=== PATIENT | male | born 1945 | race Caucasian/White ===

== ENCOUNTER 2017-07-17 15:27 | Inpatient (IN) | payer MEDICARE, OTHER ==
[~2017-07-17] VITALS: Ht 160 cm; Wt 105.4 kg
[2017-07-17 16:41] LABS: BASOPHILS ABSOLUTE AUTO 0.06 K/mm3 (0.00-0.23); BASOPHILS PERCENT AUTO 1 % (0-2); EOSINOPHILS ABSOLUTE AUTO 0.18 K/mm3 (0.00-0.68); EOSINOPHILS PERCENT AUTO 3 % (0-6); Hematocrit 35.7 % (37.0-53.0); Hemoglobin 11.7 g/dL (13.5-17.5); IMMATURE GRAN ABSOLUTE AUTO 0.02 K/mm3 (0.00-0.10); IMMATURE GRAN PERCENT AUTO 0 % (0-1); LYMPHOCYTES ABSOLUTE AUTO 0.78 K/mm3 (0.84-5.20); LYMPHOCYTES PERCENT AUTO 11 % (21-46); MONOCYTES ABSOLUTE AUTO 0.95 K/mm3 (0.16-1.47); MONOCYTES PERCENT AUTO 13 % (4-13); Mean Corpuscular HGB 31.5 pg (26.0-34.0); Mean Corpuscular HGB Conc 32.8 g/dL (31.5-36.5); Mean Corpuscular Volume 96 fL (80-100); Mean Platelet Volume 8.7 fL (9.1-12.4); NEUTROPHILS ABSOLUTE AUTO 5.24 K/mm3 (1.96-9.15); NEUTROPHILS PERCENT AUTO 73 % (41-73); Platelet Count 191 K/mm3 (150-400); RDW Coefficient Variation 13.2 % (11.7-14.2); RDW Standard Deviation 47.5 fL (35.1-46.3); Red Blood Cell Count 3.71 M/mm3 (4.30-5.90); White Blood Cell Count 7.23 K/mm3 (4.00-11.30)
[2017-07-17] MEDS ORDERED: FURO20 PO (16:43)
[2017-07-17] MEDS ORDERED: ELIQUIS5 MG PO (16:43)
[2017-07-17 16:58] LABS: Alanine Aminotransfer (ALT/SGP 9 U/L (12-78); Albumin, Blood 3.1 g/dL (3.4-5.0); Albumin/Globulin Ratio 0.9 (0.8-1.8); Alk Phos 84 U/L (50-136); Anion Gap 9 mmol/L (6-16); Aspartate Aminotrans (AST/SGOT 16 U/L (12-37); Bilirubin, Total 1.4 mg/dL (0.1-1.0); Blood Urea Nitrogen 10 mg/dL (8-24); Bun/Creatinine Ratio 10.1 (12.0-20.0); CO2, Blood 26 mmol/L (21-32); Calcium, Blood 8.8 mg/dL (8.5-10.1); Chloride, Blood 102 mmol/L (98-108); Creatinine, Blood 0.99 mg/dL (0.60-1.20); Globulin, Blood 3.6 g/dL (2.2-4.0); Glomerular Filtration Rate >60 (60-); Glucose, Blood 115 mg/dL (70-99); Potassium, Blood 3.4 mmol/L (3.5-5.5); Sodium, Blood 137 mmol/L (136-145); Total Protein, Blood 6.7 g/dL (6.4-8.2); Troponin I 0.068 ng/mL (0.000-0.040)
[2017-07-17 19:01] LABS: International Normalized Ratio 1.2; Prothrombin Time Results 12.6 Sec (9.7-11.5)
[2017-07-17 20:21] LABS: Source, Urine Clean Catch
[2017-07-17 20:31] LABS: Appearance, Urine Clear (Clear); Bilirubin, Urine Neg (Neg); Blood, Urine 2+ (Neg); Color, Urine Yellow (P-Yellow); Glucose Qualitative, Urine Neg (Neg); Ketones, Urine Neg (Neg); Leukocyte Esterase, Urine 1+ (Neg); Nitrite, Urine Neg (Neg); Protein, Urine 2+ (Neg); Specific Gravity, Urine 1.015 (1.003-1.022); Urobilinogen, Urine 3+ (Normal); pH, Urine 6.5 (5.0-8.0)
[2017-07-17 20:39] LABS: Squamous Epithelial Cells Mod /hpf (Few)
[2017-07-17 20:40] LABS: Bacteria Not Seen /hpf
[2017-07-17] MEDS ORDERED: ATOR10 PO (21:58)
[2017-07-17] MEDS ORDERED: DILT180 (21:59)
[2017-07-18 03:50] LABS: BASOPHILS ABSOLUTE AUTO 0.04 K/mm3 (0.00-0.23); BASOPHILS PERCENT AUTO 1 % (0-2); EOSINOPHILS ABSOLUTE AUTO 0.14 K/mm3 (0.00-0.68); EOSINOPHILS PERCENT AUTO 2 % (0-6); Hematocrit 33.8 % (37.0-53.0); Hemoglobin 10.8 g/dL (13.5-17.5); IMMATURE GRAN ABSOLUTE AUTO 0.03 K/mm3 (0.00-0.10); IMMATURE GRAN PERCENT AUTO 0 % (0-1); LYMPHOCYTES ABSOLUTE AUTO 0.58 K/mm3 (0.84-5.20); LYMPHOCYTES PERCENT AUTO 8 % (21-46); MONOCYTES ABSOLUTE AUTO 0.65 K/mm3 (0.16-1.47); MONOCYTES PERCENT AUTO 9 % (4-13); Mean Corpuscular HGB 31.4 pg (26.0-34.0); Mean Corpuscular Volume 98 fL (80-100); Mean Platelet Volume 8.8 fL (9.1-12.4); NEUTROPHILS ABSOLUTE AUTO 5.47 K/mm3 (1.96-9.15); NEUTROPHILS PERCENT AUTO 79 % (41-73); Platelet Count 160 K/mm3 (150-400); RDW Coefficient Variation 13.4 % (11.7-14.2); RDW Standard Deviation 47.6 fL (35.1-46.3); Red Blood Cell Count 3.44 M/mm3 (4.30-5.90); White Blood Cell Count 6.91 K/mm3 (4.00-11.30)
[2017-07-18 04:13] LABS: Anion Gap 9 mmol/L (6-16); Blood Urea Nitrogen 13 mg/dL (8-24); Bun/Creatinine Ratio 13.8 (12.0-20.0); CO2, Blood 24 mmol/L (21-32); Chloride, Blood 106 mmol/L (98-108); Creatinine, Blood 0.94 mg/dL (0.60-1.20); Glomerular Filtration Rate >60 (60-); Glucose, Blood 124 mg/dL (70-99); Potassium, Blood 3.2 mmol/L (3.5-5.5); Sodium, Blood 139 mmol/L (136-145)
[2017-07-19 05:06] LABS: BASOPHILS ABSOLUTE AUTO 0.05 K/mm3 (0.00-0.23); BASOPHILS PERCENT AUTO 1 % (0-2); EOSINOPHILS ABSOLUTE AUTO 0.35 K/mm3 (0.00-0.68); EOSINOPHILS PERCENT AUTO 5 % (0-6); Hemoglobin 11.1 g/dL (13.5-17.5); IMMATURE GRAN ABSOLUTE AUTO 0.03 K/mm3 (0.00-0.10); IMMATURE GRAN PERCENT AUTO 0 % (0-1); LYMPHOCYTES PERCENT AUTO 10 % (21-46); MONOCYTES ABSOLUTE AUTO 0.73 K/mm3 (0.16-1.47); MONOCYTES PERCENT AUTO 10 % (4-13); Mean Corpuscular HGB Conc 32.6 g/dL (31.5-36.5); Mean Corpuscular Volume 98 fL (80-100); Mean Platelet Volume 8.9 fL (9.1-12.4); NEUTROPHILS ABSOLUTE AUTO 5.39 K/mm3 (1.96-9.15); NEUTROPHILS PERCENT AUTO 74 % (41-73); Platelet Count 173 K/mm3 (150-400); RDW Coefficient Variation 13.6 % (11.7-14.2); RDW Standard Deviation 48.6 fL (35.1-46.3); Red Blood Cell Count 3.47 M/mm3 (4.30-5.90); White Blood Cell Count 7.25 K/mm3 (4.00-11.30)
[2017-07-19 05:38] LABS: Anion Gap 7 mmol/L (6-16); Blood Urea Nitrogen 14 mg/dL (8-24); Bun/Creatinine Ratio 14.9 (12.0-20.0); CO2, Blood 26 mmol/L (21-32); Calcium, Blood 8.3 mg/dL (8.5-10.1); Chloride, Blood 107 mmol/L (98-108); Creatinine, Blood 0.94 mg/dL (0.60-1.20); Glomerular Filtration Rate >60 (60-); Glucose, Blood 107 mg/dL (70-99); Magnesium, Blood 2.2 mg/dL (1.6-2.4); Potassium, Blood 4.1 mmol/L (3.5-5.5); Sodium, Blood 140 mmol/L (136-145)
[2017-07-19 21:23] LABS: Vancomycin, Trough 8.5 ug/mL (5.0-10.0)
[2017-07-20 05:01] LABS: BASOPHILS ABSOLUTE AUTO 0.06 K/mm3 (0.00-0.23); BASOPHILS PERCENT AUTO 1 % (0-2); EOSINOPHILS ABSOLUTE AUTO 0.24 K/mm3 (0.00-0.68); EOSINOPHILS PERCENT AUTO 3 % (0-6); Hematocrit 36.1 % (37.0-53.0); Hemoglobin 11.4 g/dL (13.5-17.5); IMMATURE GRAN ABSOLUTE AUTO 0.03 K/mm3 (0.00-0.10); IMMATURE GRAN PERCENT AUTO 0 % (0-1); LYMPHOCYTES ABSOLUTE AUTO 0.63 K/mm3 (0.84-5.20); LYMPHOCYTES PERCENT AUTO 7 % (21-46); MONOCYTES ABSOLUTE AUTO 1.03 K/mm3 (0.16-1.47); MONOCYTES PERCENT AUTO 12 % (4-13); Mean Corpuscular HGB 31.4 pg (26.0-34.0); Mean Corpuscular HGB Conc 31.6 g/dL (31.5-36.5); Mean Corpuscular Volume 99 fL (80-100); NEUTROPHILS PERCENT AUTO 77 % (41-73); Platelet Count 176 K/mm3 (150-400); RDW Coefficient Variation 13.6 % (11.7-14.2); RDW Standard Deviation 49.7 fL (35.1-46.3); Red Blood Cell Count 3.63 M/mm3 (4.30-5.90); White Blood Cell Count 8.69 K/mm3 (4.00-11.30)
[2017-07-20 05:35] LABS: Albumin, Blood 2.6 g/dL (3.4-5.0); Anion Gap 9 mmol/L (6-16); Blood Urea Nitrogen 15 mg/dL (8-24); Bun/Creatinine Ratio 15.9 (12.0-20.0); CO2, Blood 23 mmol/L (21-32); Calcium, Blood 8.4 mg/dL (8.5-10.1); Chloride, Blood 107 mmol/L (98-108); Creatinine, Blood 0.94 mg/dL (0.60-1.20); Glomerular Filtration Rate >60 (60-); Glucose, Blood 113 mg/dL (70-99); Phosphorus, Blood 2.7 mg/dL (2.5-4.9); Potassium, Blood 4.3 mmol/L (3.5-5.5); Sodium, Blood 139 mmol/L (136-145)
[2017-07-20 18:13] LABS: Albumin, Blood 2.7 g/dL (3.4-5.0); Anion Gap 9 mmol/L (6-16); Blood Urea Nitrogen 15 mg/dL (8-24); Bun/Creatinine Ratio 16.3 (12.0-20.0); CO2, Blood 27 mmol/L (21-32); Calcium, Blood 8.7 mg/dL (8.5-10.1); Chloride, Blood 103 mmol/L (98-108); Creatinine, Blood 0.92 mg/dL (0.60-1.20); Glomerular Filtration Rate >60 (60-); Glucose, Blood 97 mg/dL (70-99); Phosphorus, Blood 3.2 mg/dL (2.5-4.9); Potassium, Blood 4.3 mmol/L (3.5-5.5); Sodium, Blood 139 mmol/L (136-145)
[2017-07-21 05:26] LABS: BASOPHILS ABSOLUTE AUTO 0.05 K/mm3 (0.00-0.23); BASOPHILS PERCENT AUTO 1 % (0-2); EOSINOPHILS ABSOLUTE AUTO 0.24 K/mm3 (0.00-0.68); EOSINOPHILS PERCENT AUTO 4 % (0-6); Hematocrit 32.6 % (37.0-53.0); Hemoglobin 10.8 g/dL (13.5-17.5); IMMATURE GRAN ABSOLUTE AUTO 0.01 K/mm3 (0.00-0.10); IMMATURE GRAN PERCENT AUTO 0 % (0-1); LYMPHOCYTES ABSOLUTE AUTO 0.92 K/mm3 (0.84-5.20); LYMPHOCYTES PERCENT AUTO 16 % (21-46); MONOCYTES ABSOLUTE AUTO 0.66 K/mm3 (0.16-1.47); MONOCYTES PERCENT AUTO 12 % (4-13); Mean Corpuscular HGB 32.1 pg (26.0-34.0); Mean Corpuscular HGB Conc 33.1 g/dL (31.5-36.5); Mean Corpuscular Volume 97 fL (80-100); Mean Platelet Volume 9.2 fL (9.1-12.4); NEUTROPHILS PERCENT AUTO 67 % (41-73); Platelet Count 183 K/mm3 (150-400); RDW Coefficient Variation 13.5 % (11.7-14.2); RDW Standard Deviation 48.1 fL (35.1-46.3); Red Blood Cell Count 3.36 M/mm3 (4.30-5.90); White Blood Cell Count 5.68 K/mm3 (4.00-11.30)
[2017-07-21 06:09] LABS: Albumin, Blood 2.4 g/dL (3.4-5.0); Anion Gap 10 mmol/L (6-16); Blood Urea Nitrogen 15 mg/dL (8-24); Bun/Creatinine Ratio 15.7 (12.0-20.0); CO2, Blood 26 mmol/L (21-32); Calcium, Blood 8.3 mg/dL (8.5-10.1); Chloride, Blood 104 mmol/L (98-108); Creatinine, Blood 0.96 mg/dL (0.60-1.20); Glomerular Filtration Rate >60 (60-); Glucose, Blood 116 mg/dL (70-99); Phosphorus, Blood 3.6 mg/dL (2.5-4.9); Potassium, Blood 3.8 mmol/L (3.5-5.5); Sodium, Blood 140 mmol/L (136-145)
[2017-07-21 06:13] LABS: Thyroid Stimulating Hormone 0.962 uIU/mL (0.360-4.800)
[2017-07-22 05:41] LABS: Albumin, Blood 2.5 g/dL (3.4-5.0); Anion Gap 5 mmol/L (6-16); Blood Urea Nitrogen 13 mg/dL (8-24); Bun/Creatinine Ratio 15.4 (12.0-20.0); CO2, Blood 28 mmol/L (21-32); Calcium, Blood 8.6 mg/dL (8.5-10.1); Chloride, Blood 104 mmol/L (98-108); Creatinine, Blood 0.84 mg/dL (0.60-1.20); Glomerular Filtration Rate >60 (60-); Glucose, Blood 94 mg/dL (70-99); Phosphorus, Blood 3.7 mg/dL (2.5-4.9); Potassium, Blood 4.8 mmol/L (3.5-5.5); Sodium, Blood 137 mmol/L (136-145)
[2017-07-23 05:32] LABS: BASOPHILS ABSOLUTE AUTO 0.06 K/mm3 (0.00-0.23); BASOPHILS PERCENT AUTO 1 % (0-2); EOSINOPHILS ABSOLUTE AUTO 0.29 K/mm3 (0.00-0.68); EOSINOPHILS PERCENT AUTO 4 % (0-6); Hematocrit 34.8 % (37.0-53.0); Hemoglobin 11.4 g/dL (13.5-17.5); IMMATURE GRAN ABSOLUTE AUTO 0.02 K/mm3 (0.00-0.10); IMMATURE GRAN PERCENT AUTO 0 % (0-1); LYMPHOCYTES ABSOLUTE AUTO 1.11 K/mm3 (0.84-5.20); LYMPHOCYTES PERCENT AUTO 15 % (21-46); MONOCYTES ABSOLUTE AUTO 0.78 K/mm3 (0.16-1.47); MONOCYTES PERCENT AUTO 10 % (4-13); Mean Corpuscular HGB 32.1 pg (26.0-34.0); Mean Corpuscular HGB Conc 32.8 g/dL (31.5-36.5); Mean Corpuscular Volume 98 fL (80-100); Mean Platelet Volume 9.3 fL (9.1-12.4); NEUTROPHILS ABSOLUTE AUTO 5.21 K/mm3 (1.96-9.15); NEUTROPHILS PERCENT AUTO 70 % (41-73); Platelet Count 229 K/mm3 (150-400); RDW Coefficient Variation 13.5 % (11.7-14.2); RDW Standard Deviation 48.3 fL (35.1-46.3); Red Blood Cell Count 3.55 M/mm3 (4.30-5.90); White Blood Cell Count 7.47 K/mm3 (4.00-11.30)
[2017-07-23 06:06] LABS: Albumin, Blood 2.6 g/dL (3.4-5.0); Anion Gap 7 mmol/L (6-16); Blood Urea Nitrogen 17 mg/dL (8-24); CO2, Blood 28 mmol/L (21-32); Calcium, Blood 8.6 mg/dL (8.5-10.1); Chloride, Blood 101 mmol/L (98-108); Creatinine, Blood 0.94 mg/dL (0.60-1.20); Glomerular Filtration Rate >60 (60-); Glucose, Blood 92 mg/dL (70-99); Phosphorus, Blood 3.8 mg/dL (2.5-4.9); Potassium, Blood 4.5 mmol/L (3.5-5.5); Sodium, Blood 136 mmol/L (136-145)
[2017-07-24 05:29] LABS: BASOPHILS ABSOLUTE AUTO 0.04 K/mm3 (0.00-0.23); BASOPHILS PERCENT AUTO 1 % (0-2); EOSINOPHILS PERCENT AUTO 1 % (0-6); Hematocrit 36.7 % (37.0-53.0); Hemoglobin 12.2 g/dL (13.5-17.5); IMMATURE GRAN ABSOLUTE AUTO 0.03 K/mm3 (0.00-0.10); IMMATURE GRAN PERCENT AUTO 0 % (0-1); LYMPHOCYTES ABSOLUTE AUTO 0.98 K/mm3 (0.84-5.20); LYMPHOCYTES PERCENT AUTO 11 % (21-46); MONOCYTES ABSOLUTE AUTO 1.16 K/mm3 (0.16-1.47); MONOCYTES PERCENT AUTO 13 % (4-13); Mean Corpuscular HGB 31.9 pg (26.0-34.0); Mean Corpuscular HGB Conc 33.2 g/dL (31.5-36.5); Mean Corpuscular Volume 96 fL (80-100); Mean Platelet Volume 8.9 fL (9.1-12.4); NEUTROPHILS ABSOLUTE AUTO 6.37 K/mm3 (1.96-9.15); NEUTROPHILS PERCENT AUTO 73 % (41-73); Platelet Count 231 K/mm3 (150-400); RDW Coefficient Variation 13.6 % (11.7-14.2); RDW Standard Deviation 47.9 fL (35.1-46.3); Red Blood Cell Count 3.82 M/mm3 (4.30-5.90); White Blood Cell Count 8.68 K/mm3 (4.00-11.30)
[2017-07-24 05:59] LABS: Albumin, Blood 2.7 g/dL (3.4-5.0); Anion Gap 6 mmol/L (6-16); Blood Urea Nitrogen 14 mg/dL (8-24); Bun/Creatinine Ratio 17.1 (12.0-20.0); CO2, Blood 26 mmol/L (21-32); Calcium, Blood 8.7 mg/dL (8.5-10.1); Chloride, Blood 100 mmol/L (98-108); Creatinine, Blood 0.82 mg/dL (0.60-1.20); Glomerular Filtration Rate >60 (60-); Glucose, Blood 105 mg/dL (70-99); Phosphorus, Blood 3.2 mg/dL (2.5-4.9); Potassium, Blood 4.8 mmol/L (3.5-5.5); Sodium, Blood 132 mmol/L (136-145)
[2017-07-24] MEDS ORDERED: TORSE20 PO (14:01)
[2017-07-24] MEDS ORDERED: ALPR.25 PO (14:02)
[2017-07-24] MEDS ORDERED: Oyster Shell C500 MG PO (14:04)
[2017-07-24] MEDS ORDERED: Ceftriaxon2 GM/50 ML IV (14:04)
[2017-07-24] MEDS ORDERED: Lisinopril2.5 MG PO (14:05)
[2017-07-24] MEDS ORDERED: ALBU3IS INH (14:05)
[2017-07-24] MEDS ORDERED: Nystop60 GM TOP (14:07)
[2017-07-24] MEDS ORDERED: METO50ER PO (14:08)
[2017-07-24] MEDS ORDERED: TRAM50 PO (14:09)
[2017-07-24] MEDS ORDERED: SPIR25 PO (14:10)
== END 2017-07-24 17:33 | DRG 871 ==
LOC: ER 15:27 → ICUE 18:35 → MEDS 18:35 → EDBEDREQ 20:25 → MEDS 21:16 → ICUE 23:10 → MEDS 07-18 18:05 → ENPENDDIS 07-24 10:00 → MEDS 07-24 17:33
PROVIDERS: Family Medicine; Hospitalist; Internal Medicine; Physician Assistant
DX: A41.9 Sepsis, unspecified organism (principal); J18.9 Pneumonia, unspecified organism; J96.01 Acute respiratory failure with hypoxia; I50.21 Acute systolic (congestive) heart failure; I95.9 Hypotension, unspecified; I42.9 Cardiomyopathy, unspecified; I48.0 Paroxysmal atrial fibrillation; I11.0 Hypertensive heart disease with heart failure; L03.116 Cellulitis of left lower limb; I35.0 Nonrheumatic aortic (valve) stenosis; R65.20 Severe sepsis without septic shock; I87.2 Venous insufficiency (chronic) (peripheral); E78.5 Hyperlipidemia, unspecified; F41.9 Anxiety disorder, unspecified; F32.9 Major depressive disorder, single episode, unspecified; E87.6 Hypokalemia; I87.8 Other specified disorders of veins; Z86.73 Personal history of transient ischemic attack (TIA), and cerebral infarction without residual deficits; Z85.828 Personal history of other malignant neoplasm of skin; Z88.8 Allergy status to other drugs, medicaments and biological substances; Z91.018 Allergy to other foods; Z79.01 Long term (current) use of anticoagulants; Z79.899 Other long term (current) drug therapy
CPT/HCPCS: 36415; 71045; 71046; 73630; 80048; 80053; 80069; 80202; 81001; 83605; 83735; 83880; 84443; 84484; 85025; 85610; 85730; 87040; 87086; 93005; 93010; 93306; 93926; 93971; 94640; 94760; 96365; 96366; 97110; 97163; 97166; 97530; 97535; 99285; G8978; G8979; G8987; G8988; J0696; J2001; J3370; J3480; J7030; J7050

== ENCOUNTER 2017-08-17 15:32 | Emergency (ER) | payer MEDICARE, OTHER ==
[~2017-08-17] VITALS: Ht 160 cm; Wt 94.3 kg
[~2017-08-17 15:32] MED LIST: ALBU3IS INH; ALPR.25 PO; ATOR10 PO; Ceftriaxon2 GM/50 ML IV; DILT180; ELIQUIS5 MG PO; FURO20 PO; Lisinopril2.5 MG PO; METO50ER PO; Nystop60 GM TOP; Oyster Shell C500 MG PO; SPIR25 PO; TORSE20 PO; TRAM50 PO
[2017-08-17 17:07] LABS: BASOPHILS ABSOLUTE AUTO 0.03 K/mm3 (0.00-0.23); BASOPHILS PERCENT AUTO 0 % (0-2); EOSINOPHILS ABSOLUTE AUTO 0.15 K/mm3 (0.00-0.68); EOSINOPHILS PERCENT AUTO 2 % (0-6); Hematocrit 34.7 % (37.0-53.0); Hemoglobin 11.2 g/dL (13.5-17.5); IMMATURE GRAN ABSOLUTE AUTO 0.01 K/mm3 (0.00-0.10); IMMATURE GRAN PERCENT AUTO 0 % (0-1); LYMPHOCYTES ABSOLUTE AUTO 0.56 K/mm3 (0.84-5.20); LYMPHOCYTES PERCENT AUTO 8 % (21-46); MONOCYTES ABSOLUTE AUTO 0.78 K/mm3 (0.16-1.47); MONOCYTES PERCENT AUTO 12 % (4-13); Mean Corpuscular HGB 31.2 pg (26.0-34.0); Mean Corpuscular HGB Conc 32.3 g/dL (31.5-36.5); Mean Corpuscular Volume 97 fL (80-100); Mean Platelet Volume 8.6 fL (9.1-12.4); NEUTROPHILS PERCENT AUTO 77 % (41-73); Platelet Count 228 K/mm3 (150-400); RDW Coefficient Variation 14.2 % (11.7-14.2); RDW Standard Deviation 50.6 fL (35.1-46.3); Red Blood Cell Count 3.59 M/mm3 (4.30-5.90); White Blood Cell Count 6.73 K/mm3 (4.00-11.30)
[2017-08-17 18:28] LABS: Alanine Aminotransfer (ALT/SGP 15 U/L (12-78); Albumin, Blood 3.1 g/dL (3.4-5.0); Albumin/Globulin Ratio 0.8 (0.8-1.8); Alk Phos 72 U/L (50-136); Anion Gap 7 mmol/L (6-16); Aspartate Aminotrans (AST/SGOT 15 U/L (12-37); Bilirubin, Total 0.7 mg/dL (0.1-1.0); Blood Urea Nitrogen 14 mg/dL (8-24); Bun/Creatinine Ratio 13.7 (12.0-20.0); CO2, Blood 29 mmol/L (21-32); Calcium, Blood 8.6 mg/dL (8.5-10.1); Chloride, Blood 104 mmol/L (98-108); Creatinine, Blood 1.02 mg/dL (0.60-1.20); Glomerular Filtration Rate >60 (60-); Glucose, Blood 114 mg/dL (70-99); Potassium, Blood 3.3 mmol/L (3.5-5.5); Sodium, Blood 140 mmol/L (136-145); Total Protein, Blood 7.1 g/dL (6.4-8.2)
== END 2017-08-17 19:38 | disposition home or self-care (01) ==
LOC: ER 15:32
PROVIDERS: Internal Medicine
DX: R60.0 Localized edema (principal); Z88.8 Allergy status to other drugs, medicaments and biological substances; Z88.5 Allergy status to narcotic agent; Z91.018 Allergy to other foods; Z79.899 Other long term (current) drug therapy; Z79.2 Long term (current) use of antibiotics; I11.0 Hypertensive heart disease with heart failure; I50.9 Heart failure, unspecified; Z86.73 Personal history of transient ischemic attack (TIA), and cerebral infarction without residual deficits; E78.5 Hyperlipidemia, unspecified; I48.91 Unspecified atrial fibrillation
CPT/HCPCS: 36415; 80053; 83880; 85025; 96374; 99283; J1940

== ENCOUNTER 2019-05-17 19:24 | Observation (INO) | payer MEDICARE, OTHER ==
[~2019-05-17] VITALS: Ht 160 cm; Wt 107.2 kg
[~2019-05-17 19:24] MED LIST changes: +ACET325 PO; +CBD/THC PO; +FURO40 PO; +POTA10T PO; +TUMS500 MG PO
[2019-05-17 19:53] LABS: BASOPHILS ABSOLUTE AUTO 0.02 K/mm3 (0.00-0.23); BASOPHILS PERCENT AUTO 0 % (0-2); EOSINOPHILS ABSOLUTE AUTO 0.02 K/mm3 (0.00-0.68); EOSINOPHILS PERCENT AUTO 0 % (0-6); Hematocrit 41.3 % (37.0-53.0); Hemoglobin 14.1 g/dL (13.5-17.5); Mean Corpuscular HGB 32.2 pg (26.0-34.0); Mean Corpuscular HGB Conc 34.1 g/dL (31.5-36.5); Mean Corpuscular Volume 94 fL (80-100); Mean Platelet Volume 9.7 fL (9.1-12.4); Platelet Count 137 K/mm3 (150-400); RDW Coefficient Variation 12.8 % (11.7-14.2); RDW Standard Deviation 44.7 fL (35.1-46.3); Red Blood Cell Count 4.38 M/mm3 (4.30-5.90)
[2019-05-17 19:59] LABS: IMMATURE GRAN ABSOLUTE AUTO 0.01 K/mm3 (0.00-0.10); IMMATURE GRAN PERCENT AUTO 0 % (0-1); LYMPHOCYTES ABSOLUTE AUTO 1.06 K/mm3 (0.84-5.20); LYMPHOCYTES PERCENT AUTO 19 % (21-46); MONOCYTES ABSOLUTE AUTO 0.74 K/mm3 (0.16-1.47); MONOCYTES PERCENT AUTO 14 % (4-13); NEUTROPHILS ABSOLUTE AUTO 3.65 K/mm3 (1.96-9.15); NEUTROPHILS PERCENT AUTO 66 % (41-73)
[2019-05-17 20:16] LABS: Alanine Aminotransfer (ALT/SGP 19 U/L (12-78); Albumin, Blood 3.5 g/dL (3.4-5.0); Albumin/Globulin Ratio 1.1 (0.8-1.8); Alk Phos 66 U/L (50-136); Anion Gap 10 mmol/L (6-16); Aspartate Aminotrans (AST/SGOT 31 U/L (12-37); Bilirubin, Total 1.2 mg/dL (0.1-1.0); Blood Urea Nitrogen 19 mg/dL (8-24); Bun/Creatinine Ratio 16.5 (12.0-20.0); CO2, Blood 24 mmol/L (21-32); Calcium, Blood 8.9 mg/dL (8.5-10.1); Chloride, Blood 98 mmol/L (98-108); Creatinine, Blood 1.15 mg/dL (0.60-1.20); Globulin, Blood 3.3 g/dL (2.2-4.0); Glomerular Filtration Rate >60 (60-); Glucose, Blood 113 mg/dL (70-99); Potassium, Blood 3.4 mmol/L (3.5-5.5); Sodium, Blood 132 mmol/L (136-145); Total Protein, Blood 6.8 g/dL (6.4-8.2); Troponin I 0.145 ng/mL (0.000-0.040)
--- NOTE | 2019-05-18 04:43 | NUR ---
SHIFT SUMMARY PT ARRIVED FROM ER VIA STRETCHER; SLIDER SHEET WAS USED TO TRANSFER PT TO BED; PT ALERT AND ORIENTED TO SELF; FORGETFUL AT TIMES; O2 SATS >93 ON 2 L NC; PT ARRIVED W/ CARDIZEM GTT AT 15/HR; PT IN AFLUTTER UPON ARRIVAL TO UNIT; PT TOOK 1 PO POTASSIUM AND STATED HE COULD NOT TAKE THE OTHER; CARDIZEM WAS STOPPED APPROXIMATELY 2330; HR 45-55; BOLT HEADER NOTIFIED THIS RN THAT PT HAD CONVERTED TO NSR; PT DENIES CHEST PAIN; PT INCONTINENT AT TIMES; ATTENDS IN PLACE; L WRIST IV FLUSHES APPROPTIATELY; PT STATES HE TAKES 1/2 G CANNABIS DAILY; STATES HE HAS NOT TAKEN ANY OF HIS PRESCRIBED MEDS IN MAY PT HAD A FEW EPISODES OF HR IN 40'S; JUNCTIONAL RHYTHM NOTED IN THE O400 HOUR W/ PVC'S AND PAUSES; WHEN PT WAS AWOKE HE STATED HE FELT FINE; WHEN PT IS AWOKE HR INCREASES; MIXING AND DISPENSING SUPERVISOR BROUGHT ZOLL TO BEDSIDE PREVENITIVE MEASURE; PT DENIES NEEDS AT THIS TIME; CALL LIGHT IN REACH; BED IN LOWEST POSITION; WILL CONTINUE TO MONITOR CLOSELY UNTIL HAND OFF TO DAY SHIFT RN.
--- NOTE | 2019-05-18 05:56 | NUR ---
UPDATE PT HAD APPROXIMATELY 5 SECOND PAUSE AROUND 0508 THIS AM; PT STATED HE FELT FINE WHEN AWOKE; ATTEMPT MADE TO REPOSITION PT OFF LEFT SIDE AND ENCOURAGED MOVEMENT TO WAKE PT AND INCREASE HR; PT REFUSED AGAIN STATING "I'M FINE."
[2019-05-18 06:07] LABS: Hematocrit 36.6 % (37.0-53.0); Hemoglobin 12.5 g/dL (13.5-17.5); Mean Corpuscular HGB 32.4 pg (26.0-34.0); Mean Corpuscular HGB Conc 34.2 g/dL (31.5-36.5); Mean Corpuscular Volume 95 fL (80-100); Mean Platelet Volume 9.9 fL (9.1-12.4); Platelet Count 126 K/mm3 (150-400); RDW Coefficient Variation 13.1 % (11.7-14.2); RDW Standard Deviation 45.1 fL (35.1-46.3); Red Blood Cell Count 3.86 M/mm3 (4.30-5.90); White Blood Cell Count 4.65 K/mm3 (4.00-11.30)
[2019-05-18 06:24] LABS: Alanine Aminotransfer (ALT/SGP 20 U/L (12-78); Alk Phos 55 U/L (50-136); Anion Gap 9 mmol/L (6-16); Aspartate Aminotrans (AST/SGOT 29 U/L (12-37); Bilirubin, Total 1.2 mg/dL (0.1-1.0); Blood Urea Nitrogen 18 mg/dL (8-24); Bun/Creatinine Ratio 14.4 (12.0-20.0); CO2, Blood 26 mmol/L (21-32); Calcium, Blood 8.5 mg/dL (8.5-10.1); Chloride, Blood 100 mmol/L (98-108); Creatinine, Blood 1.25 mg/dL (0.60-1.20); Glomerular Filtration Rate >60 (60-); Glucose, Blood 104 mg/dL (70-99); Potassium, Blood 3.8 mmol/L (3.5-5.5); Sodium, Blood 135 mmol/L (136-145)
--- NOTE | 2019-05-18 11:22 | NUR ---
REPORT CALLED TO PCU PAINT LINE SUPERVISOR @ [facility]. PT IS BEING TRANSFERED VIA AMBULANCE. HE IS A&O AT THIS TIME, VSS, 2L O2 VIA NC, RESP UNLABORED,18 G IV SL TO RIGHT WRIST. PT BELONGINGS WERE SENT WITH HIM.
== END 2019-05-18 11:07 | disposition short-term general hospital (02) ==
LOC: ER 19:24 → PCU 19:25
PROVIDERS: Emergency Medicine; Nurse Practitioner Acute Care; ADMIT Hospitalist
DX: I48.0 Paroxysmal atrial fibrillation (principal); I49.5 Sick sinus syndrome; E87.6 Hypokalemia; R19.7 Diarrhea, unspecified; R78.89 Finding of other specified substances, not normally found in blood; I08.0 Rheumatic disorders of both mitral and aortic valves; I97.89 Other postprocedural complications and disorders of the circulatory system, not elsewhere classified; I89.0 Lymphedema, not elsewhere classified; I48.92 Unspecified atrial flutter; I42.9 Cardiomyopathy, unspecified; I12.9 Hypertensive chronic kidney disease with stage 1 through stage 4 chronic kidney disease, or unspecified chronic kidney disease; N18.9 Chronic kidney disease, unspecified; E78.5 Hyperlipidemia, unspecified; E66.3 Overweight; Z68.41 Body mass index [BMI] 40.0-44.9, adult; Z66 Do not resuscitate; Z88.5 Allergy status to narcotic agent; Z88.8 Allergy status to other drugs, medicaments and biological substances; Z91.018 Allergy to other foods; Z86.73 Personal history of transient ischemic attack (TIA), and cerebral infarction without residual deficits; Z79.01 Long term (current) use of anticoagulants; Z79.899 Other long term (current) drug therapy; F41.0 Panic disorder [episodic paroxysmal anxiety]
CPT/HCPCS: 36415; 71045; 80053; 83735; 84484; 85025; 85027; 93005; 93010; 96365; 96376; 99285-25; A9270; G0378

== ENCOUNTER 2019-12-16 14:54 | Emergency (ER) | payer MEDICARE, OTHER ==
[~2019-12-16] VITALS: Ht 172.7 cm; Wt 90.7 kg
== END 2019-12-16 18:20 | disposition home or self-care (01) ==
LOC: ER 14:54
DX: I89.0 Lymphedema, not elsewhere classified (principal); Z91.018 Allergy to other foods; Z88.8 Allergy status to other drugs, medicaments and biological substances; Z79.899 Other long term (current) drug therapy; I48.91 Unspecified atrial fibrillation; I48.92 Unspecified atrial flutter; F41.0 Panic disorder [episodic paroxysmal anxiety]; I11.9 Hypertensive heart disease without heart failure; I43 Cardiomyopathy in diseases classified elsewhere; Z86.73 Personal history of transient ischemic attack (TIA), and cerebral infarction without residual deficits
CPT/HCPCS: 93971; 99283-25

== ENCOUNTER 2019-12-23 15:27 | Inpatient (IN) | payer MEDICARE, OTHER ==
[~2019-12-23] VITALS: Ht 170.2 cm; Wt 108.0 kg
[2019-12-23 16:48] LABS: BASOPHILS ABSOLUTE AUTO 0.04 K/mm3 (0.00-0.23); BASOPHILS PERCENT AUTO 1 % (0-2); EOSINOPHILS ABSOLUTE AUTO 0.09 K/mm3 (0.00-0.68); EOSINOPHILS PERCENT AUTO 2 % (0-6); Hemoglobin 12.1 g/dL (13.5-17.5); IMMATURE GRAN ABSOLUTE AUTO 0.02 K/mm3 (0.00-0.10); IMMATURE GRAN PERCENT AUTO 0 % (0-1); LYMPHOCYTES ABSOLUTE AUTO 0.63 K/mm3 (0.84-5.20); LYMPHOCYTES PERCENT AUTO 10 % (21-46); MONOCYTES ABSOLUTE AUTO 0.89 K/mm3 (0.16-1.47); MONOCYTES PERCENT AUTO 15 % (4-13); Mean Corpuscular HGB 32.7 pg (26.0-34.0); Mean Corpuscular HGB Conc 32.7 g/dL (31.5-36.5); Mean Corpuscular Volume 100 fL (80-100); Mean Platelet Volume 11.3 fL (9.1-12.4); NEUTROPHILS PERCENT AUTO 72 % (41-73); Platelet Count 80 K/mm3 (150-400); RDW Coefficient Variation 15.3 % (11.7-14.2); RDW Standard Deviation 56.5 fL (35.1-46.3); White Blood Cell Count 6.07 K/mm3 (4.00-11.30)
[2019-12-23 17:21] LABS: Alanine Aminotransfer (ALT/SGP 13 U/L (12-78); Albumin, Blood 2.7 g/dL (3.4-5.0); Albumin/Globulin Ratio 0.8 (0.8-1.8); Alk Phos 64 U/L (50-136); Anion Gap 9 mmol/L (6-16); Aspartate Aminotrans (AST/SGOT 25 U/L (12-37); Blood Urea Nitrogen 9 mg/dL (8-24); Bun/Creatinine Ratio 8.3 (12.0-20.0); CO2, Blood 25 mmol/L (21-32); Calcium, Blood 8.7 mg/dL (8.5-10.1); Chloride, Blood 99 mmol/L (98-108); Creatinine, Blood 1.09 mg/dL (0.60-1.20); Globulin, Blood 3.3 g/dL (2.2-4.0); Glomerular Filtration Rate >60 (60-); Glucose, Blood 101 mg/dL (70-99); Potassium, Blood 3.2 mmol/L (3.5-5.5); Sodium, Blood 133 mmol/L (136-145)
[2019-12-23] MEDS ORDERED: LISINOPRIL2.5 MG PO (18:07)
[2019-12-23] MEDS ORDERED: FUROSEMIDE40 MG PO (18:07)
[2019-12-23] MEDS ORDERED: Betapace120 MG PO (18:08)
[2019-12-23] MEDS ORDERED: ATOR10 PO (18:08)
[2019-12-24 03:51] LABS: BASOPHILS ABSOLUTE AUTO 0.04 K/mm3 (0.00-0.23); BASOPHILS PERCENT AUTO 1 % (0-2); EOSINOPHILS ABSOLUTE AUTO 0.07 K/mm3 (0.00-0.68); EOSINOPHILS PERCENT AUTO 1 % (0-6); Hemoglobin 12.8 g/dL (13.5-17.5); IMMATURE GRAN ABSOLUTE AUTO 0.02 K/mm3 (0.00-0.10); IMMATURE GRAN PERCENT AUTO 0 % (0-1); LYMPHOCYTES ABSOLUTE AUTO 0.46 K/mm3 (0.84-5.20); LYMPHOCYTES PERCENT AUTO 6 % (21-46); MONOCYTES ABSOLUTE AUTO 0.94 K/mm3 (0.16-1.47); MONOCYTES PERCENT AUTO 13 % (4-13); Mean Corpuscular Volume 103 fL (80-100); Mean Platelet Volume 10.4 fL (9.1-12.4); NEUTROPHILS ABSOLUTE AUTO 5.71 K/mm3 (1.96-9.15); NEUTROPHILS PERCENT AUTO 79 % (41-73); Platelet Count 80 K/mm3 (150-400); RDW Coefficient Variation 15.6 % (11.7-14.2); RDW Standard Deviation 59.6 fL (35.1-46.3); Red Blood Cell Count 3.88 M/mm3 (4.30-5.90); White Blood Cell Count 7.24 K/mm3 (4.00-11.30)
[2019-12-24 04:13] LABS: Anion Gap 11 mmol/L (6-16); Blood Urea Nitrogen 9 mg/dL (8-24); Bun/Creatinine Ratio 7.6 (12.0-20.0); CO2, Blood 23 mmol/L (21-32); Calcium, Blood 8.3 mg/dL (8.5-10.1); Chloride, Blood 101 mmol/L (98-108); Creatinine, Blood 1.18 mg/dL (0.60-1.20); Glomerular Filtration Rate >60 (60-); Glucose, Blood 111 mg/dL (70-99); Potassium, Blood 3.1 mmol/L (3.5-5.5); Sodium, Blood 135 mmol/L (136-145)
--- NOTE | 2019-12-24 05:28 | NUR ---
AOX4. HR A FIB, PVC'S, V-TACH. PT STOPPED TAKING SOTALOL - LAST DOSE 12/19/2019. GAVE PO METOPROLOL AND IV PUSH, HEART RATE DOWN TO 90'S AND 110'S. BILAT LEG WOUNDS. PT REQUESTED O2 FOR COMFORT. WAS SATTING 96% ON RA. LACTIC CAME BACK UP TO 3.1 FROM 2.7, MD NOTIFIED, 1 LITER OF FLUIDS ORDERED. VOIDING TO URINAL. NO BM. IS A 1-2 PERSON ASSIST. CALL LIGHT WITHIN REACH, BED IN LOWEST POSITION. WILL CONTINUE TO MONITOR.
--- NOTE | 2019-12-24 07:39 | NUR ---
ASSUMED CARE: PT RESTING IN BED BUT ROUSES EASILY TO SPEAK WITH STAFF. LEFT LEG VERY LARGE COMPARED WITH RIGHT. RIGHT LEG RED FROM ANKLE TO MID [place]. NO ACUTE NEEDS AT THIS TIME.
--- NOTE | 2019-12-24 10:39 | NUR ---
DR TEJEDA AND DR LIVE CAME TO SEE PT THIS AM. AWARE OF ECTOPY LAST NIGHT AND THAT PT HAS NOT TAKEN SOTALOL FOR A WEEK. PT STATES THAT HIS CAREGIVER PUT HIS MEDS OUT OF REACH AND HE COULD NOT GET TO THEM. HE STATES THAT IS CAREGIVER COMES IN 7 TIMES IN 2 WEEKS FOR 3 HOURS AT A TIME. PT SAYS HE IS ONLY ABLE TO SLEEP WHEN CAREGIVER IS THERE BECAUSE HIS CAREGIVER HELPS HIM ELEVATE HIS FEET. DR TEJEDA HAS BEEN TOLD ABOUT PT'S LIVING SITUATION. PLAN TO RESUME SOTALOL PER DR TEJEDA
--- NOTE | 2019-12-24 14:48 | NUR ---
ASKED DR LIVE ABOUT SATOLOL ORDER. DR LIVE STATES WAITING UNTIL TOMORROW.
--- NOTE | 2019-12-24 19:42 | NUR ---
SHIFT SUMMARY: PT RESTING QUIETLY AT THIS TIME. ROUSES EASILY. AFIB RATE CONTROLLED T/O SHIFT. LEGS PROPPED UP WITH CRADLE OVER FEET. MEDICATED FOR PAIN X1. NO ACUTE NEEDS OR CONCERNS.
[2019-12-25 03:46] LABS: BASOPHILS ABSOLUTE AUTO 0.02 K/mm3 (0.00-0.23); BASOPHILS PERCENT AUTO 0 % (0-2); EOSINOPHILS ABSOLUTE AUTO 0.15 K/mm3 (0.00-0.68); EOSINOPHILS PERCENT AUTO 3 % (0-6); Hematocrit 34.7 % (37.0-53.0); Hemoglobin 11.4 g/dL (13.5-17.5); IMMATURE GRAN ABSOLUTE AUTO 0.01 K/mm3 (0.00-0.10); IMMATURE GRAN PERCENT AUTO 0 % (0-1); LYMPHOCYTES ABSOLUTE AUTO 0.56 K/mm3 (0.84-5.20); LYMPHOCYTES PERCENT AUTO 9 % (21-46); MONOCYTES ABSOLUTE AUTO 0.77 K/mm3 (0.16-1.47); MONOCYTES PERCENT AUTO 13 % (4-13); Mean Corpuscular HGB 33.2 pg (26.0-34.0); Mean Corpuscular HGB Conc 32.9 g/dL (31.5-36.5); Mean Corpuscular Volume 101 fL (80-100); Mean Platelet Volume 10.5 fL (9.1-12.4); NEUTROPHILS ABSOLUTE AUTO 4.48 K/mm3 (1.96-9.15); NEUTROPHILS PERCENT AUTO 75 % (41-73); Platelet Count 75 K/mm3 (150-400); RDW Coefficient Variation 15.4 % (11.7-14.2); RDW Standard Deviation 57.3 fL (35.1-46.3); Red Blood Cell Count 3.43 M/mm3 (4.30-5.90); White Blood Cell Count 5.99 K/mm3 (4.00-11.30)
[2019-12-25 03:59] LABS: Anion Gap 6 mmol/L (6-16); Blood Urea Nitrogen 10 mg/dL (8-24); Bun/Creatinine Ratio 8.5 (12.0-20.0); CO2, Blood 30 mmol/L (21-32); Calcium, Blood 7.9 mg/dL (8.5-10.1); Chloride, Blood 101 mmol/L (98-108); Creatinine, Blood 1.17 mg/dL (0.60-1.20); Glomerular Filtration Rate >60 (60-); Glucose, Blood 109 mg/dL (70-99); Potassium, Blood 3.5 mmol/L (3.5-5.5); Sodium, Blood 137 mmol/L (136-145)
--- NOTE | 2019-12-25 06:02 | NUR ---
SHIFT SUMMARY: AFIB CONTROLLED ALL SHIFT, NO OTHER ISSUES NOTED.
[2019-12-25 07:14] LABS: Vancomycin, Trough 18.3 ug/mL (5.0-10.0)
--- NOTE | 2019-12-25 09:24 | NUR ---
ASSUMED CARE: PT ALERT AND ORIENTED, VITALS STABLE THIS AM, AFEBRILE, HRR CONTROLLED ON THE 80'S, DR LIVE AT BEDSIDE DURING MED PASS. PLAN TO RESTART SOTALOL TODAY, AWAITING FOR ORDERS. PT STILL C/O PAIN TRAMADOL GIVEN. CONTINUES ON IV ABO. NO ACUTE CHANGE AT THIS TIME. WILL MONITOR
--- NOTE | 2019-12-25 18:22 | NUR ---
PT SUMMARY: PT REMAINED ALERT AND ORIENTED, COOPERATIVE WITH CARES. VITALS HRR AFIB WITH PVC'S 90'S, TRENDING EKG PT WAS STARTED ON SOTALOL TODAY, BP SYSTOLIC 115'S, SATS ABOVE 95% ON ROOMAIR, AFEBRILE. CONTINUES ON IV ABO LEFT LEG LYMPHEDEMA LEG WAS WRAPPED WITH HOA WRAP PER PT'S REQUESTS PT ALSO HAS MAGOTS IN BETWEEN TOES ON LEFT FOOT, 5 MAGOTS WAS TAKEN OUT SITE WAS CLEAN NO OPEN WOUND NOTED, SITE APPEARS MOIST. LEGS ELEVATED IN PILLOWS. PT ONLY HAD 200 MLS URINE OUTPUT BLADDER SCAN SHOWS 167 MLS RETAINED URINE. NO ACUTE CHANGE, C/O PAIN TRAMADOL GIVEN X1 AND EFFECTIVE, PT WAS ABLE TO PARTICIPATE WITH PHYSICAL THERAPY. PT WITH POOR APPETITE. ABLE TO MAKE NEEDS KNOWN, WILL REPORT TO ONCOMING SHIFT
--- NOTE | 2019-12-26 05:12 | NUR ---
PATIENT WOKE UP IN THE MIDDLE OF THE NIGHT WITH A PANIC ATTACK YELLING AND STATING THAT "I DIDN'T KNOW WHAT TIME IT WAS AND CALLED MY , NOW SHE'S MAD AT ME" INSTRUCTED PATIENT TO BREATH AND TO CONTROL HIS EMOTIONS AND TONE, HE COMPLIED AND REQUESTED SUCTION SETUP FOR LOOSE SECRETIONS. VSS, CALL LIGHT WITHIN REACH. BED LOWERED TO LOWEST POSITION.
[2019-12-26 09:14] LABS: BASOPHILS ABSOLUTE AUTO 0.04 K/mm3 (0.00-0.23); BASOPHILS PERCENT AUTO 1 % (0-2); EOSINOPHILS ABSOLUTE AUTO 0.13 K/mm3 (0.00-0.68); EOSINOPHILS PERCENT AUTO 2 % (0-6); Hematocrit 35.5 % (37.0-53.0); Hemoglobin 11.6 g/dL (13.5-17.5); IMMATURE GRAN ABSOLUTE AUTO 0.01 K/mm3 (0.00-0.10); IMMATURE GRAN PERCENT AUTO 0 % (0-1); LYMPHOCYTES ABSOLUTE AUTO 0.55 K/mm3 (0.84-5.20); LYMPHOCYTES PERCENT AUTO 9 % (21-46); MONOCYTES ABSOLUTE AUTO 0.87 K/mm3 (0.16-1.47); MONOCYTES PERCENT AUTO 15 % (4-13); Mean Corpuscular HGB Conc 32.7 g/dL (31.5-36.5); Mean Corpuscular Volume 101 fL (80-100); Mean Platelet Volume 11.4 fL (9.1-12.4); NEUTROPHILS ABSOLUTE AUTO 4.38 K/mm3 (1.96-9.15); NEUTROPHILS PERCENT AUTO 73 % (41-73); Platelet Count 68 K/mm3 (150-400); RDW Coefficient Variation 15.7 % (11.7-14.2); Red Blood Cell Count 3.51 M/mm3 (4.30-5.90); White Blood Cell Count 5.98 K/mm3 (4.00-11.30)
--- NOTE | 2019-12-26 10:35 | NUR ---
The pt is alert, oriented, altered logical reasoning at times. He states that he cured his cancer years ago with CBD oils. States that he had a pacemaker put in this June due to heart rate of 190. States that he had maggots in his wound on his right leg when he initially came to the ED last Monday. States that he lives in a trailer. STates broke up with his girlfriend last night because he called her at 3 am without realizing that it was the middle of the night and she was mad at him for waking her up.
[2019-12-26 11:35] LABS: Anion Gap 5 mmol/L (6-16); Blood Urea Nitrogen 11 mg/dL (8-24); CO2, Blood 28 mmol/L (21-32); Chloride, Blood 100 mmol/L (98-108); Glomerular Filtration Rate >60 (60-); Glucose, Blood 95 mg/dL (70-99); Potassium, Blood 4.3 mmol/L (3.5-5.5); Sodium, Blood 133 mmol/L (136-145)
--- NOTE | 2019-12-26 12:33 | NUR ---
pt declined dietary supplement, declined bowel care. STates he often goes several days without a bowel movement.
[2019-12-26 13:02] LABS: Anion Gap 6 mmol/L (6-16); Blood Urea Nitrogen 11 mg/dL (8-24); Bun/Creatinine Ratio 9.3 (12.0-20.0); CO2, Blood 29 mmol/L (21-32); Chloride, Blood 100 mmol/L (98-108); Creatinine, Blood 1.18 mg/dL (0.60-1.20); Glomerular Filtration Rate >60 (60-); Glucose, Blood 106 mg/dL (70-99); Potassium, Blood 4.1 mmol/L (3.5-5.5); Sodium, Blood 135 mmol/L (136-145)
--- NOTE | 2019-12-26 17:31 | NUR ---
The pt has been encouraged today to keep up his oral fluid intake. States that he usually drinks 2 liters of coke perday, as well as bottled water. He has been provided with both today, but has not drunk much of either. For meals he is uninterested in the solid food, but has been drinking some of the milk. He declines oral supplements.
--- NOTE | 2019-12-27 04:16 | NUR ---
PATIENT IS NEEDY AND TEMPERMENTAL. HE YELLS OUT FOR ASSISTANCE DESPITE BEING INSTRUCTED ON USE OF CALL LIGHT. HE REQUETS FREQUENT POSITION CHANGES ON AN INCONVENIENT TIME SCHEDULE. HE WOULD RECALL YOU INTO ROOM WITHIN 5 MINUTES OF LEAVING IT HE STATES THAT HE DOES NOT MEAN TO YELL AT STAFF, HE IS JUST FRUSTRATED AT HIS SITUATION. BOUNDARIES AND EXPECTATIONS WERE SET AND IT WAS EXPLAINED TO HIM THAT HE WAS NOT GOING TO BE SERVED SO FREQUENTLY UNLESS IT WAS EMERGENT OTHERS REQUIRE MORE PRESSING ASSISTANCE
[2019-12-27 05:42] LABS: BASOPHILS ABSOLUTE AUTO 0.04 K/mm3 (0.00-0.23); BASOPHILS PERCENT AUTO 1 % (0-2); EOSINOPHILS ABSOLUTE AUTO 0.05 K/mm3 (0.00-0.68); EOSINOPHILS PERCENT AUTO 1 % (0-6); Hematocrit 38.8 % (37.0-53.0); Hemoglobin 12.5 g/dL (13.5-17.5); IMMATURE GRAN ABSOLUTE AUTO 0.03 K/mm3 (0.00-0.10); IMMATURE GRAN PERCENT AUTO 0 % (0-1); LYMPHOCYTES ABSOLUTE AUTO 0.72 K/mm3 (0.84-5.20); LYMPHOCYTES PERCENT AUTO 9 % (21-46); MONOCYTES ABSOLUTE AUTO 0.93 K/mm3 (0.16-1.47); MONOCYTES PERCENT AUTO 12 % (4-13); Mean Corpuscular HGB 32.8 pg (26.0-34.0); Mean Corpuscular HGB Conc 32.2 g/dL (31.5-36.5); Mean Corpuscular Volume 102 fL (80-100); Mean Platelet Volume 11.7 fL (9.1-12.4); NEUTROPHILS ABSOLUTE AUTO 6.31 K/mm3 (1.96-9.15); NEUTROPHILS PERCENT AUTO 78 % (41-73); Platelet Count 76 K/mm3 (150-400); RDW Coefficient Variation 15.9 % (11.7-14.2); RDW Standard Deviation 58.5 fL (35.1-46.3); Red Blood Cell Count 3.81 M/mm3 (4.30-5.90); White Blood Cell Count 8.08 K/mm3 (4.00-11.30)
[2019-12-27 06:42] LABS: Anion Gap 6 mmol/L (6-16); Blood Urea Nitrogen 14 mg/dL (8-24); Bun/Creatinine Ratio 11.6 (12.0-20.0); CO2, Blood 29 mmol/L (21-32); Calcium, Blood 8.2 mg/dL (8.5-10.1); Chloride, Blood 100 mmol/L (98-108); Creatinine, Blood 1.21 mg/dL (0.60-1.20); Glomerular Filtration Rate >60 (60-); Glucose, Blood 119 mg/dL (70-99); Potassium, Blood 4.2 mmol/L (3.5-5.5); Sodium, Blood 135 mmol/L (136-145)
--- NOTE | 2019-12-27 09:22 | NUR ---
This morning the patient is alert, oriented and cooperative. He has no complaints this morning. Noted blood pressure less than 100 systolic, but the pt insists that his blood pressure is usually less than 110. His heart rhythm is atrial fibriallation, in the 90s. He is wearing oxygen at 2 l/min, which he says is close to his home dose of 2.5 l/min. Noted occasional moist sounding cough, and the pt states he is not bringing up any phlegm yet today.
--- NOTE | 2019-12-27 10:12 | NUR ---
ASSUMED CARE OF PT. HE IS DOING OK, WORKING WITH OT AT THE MOMENT, STATES HE HAS ANXIETY. CALL LIGHT IN REACH.
[2019-12-27] MEDS ORDERED: CEPH500 PO (12:50)
--- NOTE | 2019-12-27 14:48 | NUR ---
pt will be transferring to [facility] in [facility], report was called. iv removed intact. transport will be here at 1500
--- NOTE | 2019-12-27 17:30 | NUR ---
PT LEFT VIA [facility] FOR [facility] IN [place]. ALL BELONGINGS WENT WITH HER.
== END 2019-12-27 17:19 | DRG 872 ==
LOC: ER 15:27 → PCU 18:06
PROVIDERS: Family Medicine; Physician Assistant; ADMIT Hospitalist
DX: A41.9 Sepsis, unspecified organism (principal); L03.115 Cellulitis of right lower limb; E87.1 Hypo-osmolality and hyponatremia; I42.9 Cardiomyopathy, unspecified; I48.92 Unspecified atrial flutter; B37.89 Other sites of candidiasis; E87.2 Acidosis; I50.22 Chronic systolic (congestive) heart failure; I89.0 Lymphedema, not elsewhere classified; E87.6 Hypokalemia; I35.0 Nonrheumatic aortic (valve) stenosis; F41.1 Generalized anxiety disorder; I48.91 Unspecified atrial fibrillation; B87.9 Myiasis, unspecified; E78.5 Hyperlipidemia, unspecified; R65.20 Severe sepsis without septic shock; I11.0 Hypertensive heart disease with heart failure
CPT/HCPCS: 36415; 80048; 80053; 80202; 83605; 83735; 84100; 85025; 87040; 93005; 93010; 96361; 96365; 96366; 97110; 97112; 97162; 97166; 97530; 97535; 99285-25; A9270; C1751; J0690; J0696; J3370; J7030; J7050; J7060; J7120; U0002

== ENCOUNTER 2020-04-16 13:21 | Inpatient (IN) | payer MEDICARE, OTHER ==
[~2020-04-16] VITALS: Ht 177.8 cm; Wt 102.8 kg
[~2020-04-16 13:21] MED LIST changes: +CEPH500 PO; -ELIQUIS5 MG PO; +LISINOPRIL2.5 MG PO; -Lisinopril2.5 MG PO
[2020-04-16] MEDS ORDERED: Betapace120 MG PO (14:17)
[2020-04-16] MEDS ORDERED: ELIQUIS5 MG PO (14:17)
[2020-04-16] MEDS ORDERED: Lisinopril2.5 MG PO (14:18)
[2020-04-16] MEDS ORDERED: ATOR10 PO (14:18)
[2020-04-16] MEDS ORDERED: FUROSEMIDE40 MG PO (14:18)
[2020-04-16 14:40] LABS: BASOPHILS ABSOLUTE AUTO 0.04 K/mm3 (0.00-0.23); BASOPHILS PERCENT AUTO 1 % (0-2); EOSINOPHILS ABSOLUTE AUTO 0.21 K/mm3 (0.00-0.68); EOSINOPHILS PERCENT AUTO 3 % (0-6); Hemoglobin 12.6 g/dL (13.5-17.5); IMMATURE GRAN ABSOLUTE AUTO 0.02 K/mm3 (0.00-0.10); IMMATURE GRAN PERCENT AUTO 0 % (0-1); LYMPHOCYTES ABSOLUTE AUTO 0.66 K/mm3 (0.84-5.20); LYMPHOCYTES PERCENT AUTO 8 % (21-46); MONOCYTES PERCENT AUTO 15 % (4-13); Mean Corpuscular HGB 31.5 pg (26.0-34.0); Mean Corpuscular HGB Conc 33.2 g/dL (31.5-36.5); Mean Corpuscular Volume 95 fL (80-100); Mean Platelet Volume 9.4 fL (9.1-12.4); NEUTROPHILS ABSOLUTE AUTO 5.72 K/mm3 (1.96-9.15); NEUTROPHILS PERCENT AUTO 73 % (41-73); Platelet Count 159 K/mm3 (150-400); RDW Coefficient Variation 13.4 % (11.7-14.2); RDW Standard Deviation 47.8 fL (35.1-46.3); White Blood Cell Count 7.85 K/mm3 (4.00-11.30)
[2020-04-16 15:53] LABS: Albumin, Blood 3.1 g/dL (3.4-5.0); Albumin/Globulin Ratio 0.9 (0.8-1.8); Bilirubin, Total 0.8 mg/dL (0.1-1.0); Bun/Creatinine Ratio 19.4 (12.0-20.0); Calcium, Blood 8.6 mg/dL (8.5-10.1); Creatinine, Blood 2.68 mg/dL (0.60-1.20); Globulin, Blood 3.5 g/dL (2.2-4.0); Potassium, Blood 3.5 mmol/L (3.5-5.5); Total Protein, Blood 6.6 g/dL (6.4-8.2)
[2020-04-16 16:18] LABS: Source, Urine Clean Catch
[2020-04-16 16:25] LABS: Appearance, Urine Hazy (Clear); Bilirubin, Urine Neg (Neg); Blood, Urine 3+ (Neg); Color, Urine Yellow (P-Yellow); Glucose Qualitative, Urine Neg (Neg); Ketones, Urine Neg (Neg); Leukocyte Esterase, Urine 3+ (Neg); Nitrite, Urine Neg (Neg); Protein, Urine 3+ (Neg); Urobilinogen, Urine 1+ (Normal)
[2020-04-16 16:31] LABS: Bacteria Many /hpf; Squamous Epithelial Cells Few /hpf (Few); White Blood Cells, Urine TNTC /hpf (0-5)
--- NOTE | 2020-04-16 19:00 | NUR ---
PT ARRIVED TO ICU 10 PT ARRIVED TO ICU 10 AT 1855 VIA STRETCHER. PT TRANSFERED TO ICU BED WITHOUT ISSUE. PT ALERT AND ORIENTED X4. PT ON RA, BACH SMALL AMOUNT OF URINE, <30ML, 22g TO LT HAND. WILL REPORT TO PM RN WHEN AVAILABLE.
[2020-04-16 20:28] LABS: Influenza A, PCR Negative (NEGATIVE); Influenza B, PCR Negative (NEGATIVE); Resp Syncytial Virus, PCR Negative (NEGATIVE); SARS-Cov-2 (COVID-19) PCR, MMC Negative (NEGATIVE)
--- NOTE | 2020-04-16 21:11 | NUR ---
AT SHIFT CHANGE THERE WAS DIFFICULTY GETTING BP READINGS. MANUAL WITH DOPPLER DONE AND SBP 60. CALL PLACE TO BRADLEY TINOCO AND ORDERS RECEIVED FOR LEVOPHED (OK TO RUN THROUGH PIV) AND CC CONSULT. AT THIS TIME PT STATUS CHANGED FROM PCU TO ICU AND IN-HOUSE TRANSFER DONE. CALL PLACED TO DR YOU. OK TO CONTINUE WITH LEVO THROUGH PIV UP TO 8MCG, ANYTHING BEYOND 8MCG TO CALL KENYATTA FOR CL PLACEMENT. DR AVILA ALSO CALLED FOR AN UPDATE. UPDATE GIVEN. ADDITIONAL ORDERS RECEIVED FOR AN ACTH STIM TEST AND DECADRONE. OF NOW SBP IS >70 AND MAPS ARE HIGH 50S-60S. ACTH STIM TEST STARTED. WILL CONTINUE TO MONITOR
--- NOTE | 2020-04-16 21:42 | NUR ---
PT DROWSY BUT AWAKENS EASILY TO VERBAL STIMULI. IS ANXIOUS AND WAS INITIALLY REFUSING LAB DRAWS, ETC. SBP REMAINS LOW EVEN ON 6MCG OF LEVOPHED. LUNG SOUNDS ARE COARSE, BUT IS SATTING WELL ON RA. 10F BACH IN PLACE. NO URINE OUTPUT. PTS LLE IS SIGNIFICANTLY LARGER THAN R. HAS HX OF LYMPHEDEMA AND THE LEG SIZE IS AT BASELINE. LLE IS SCALING AND PEELING. PT IN AN IRREGULAR RHYTHM. BILAT RADIAL PULSES AND R PEDAL PULSE ARE FAINT BUT HAVE IMPROVED SINCE STARTING LEVO.
--- NOTE | 2020-04-16 22:52 | NUR ---
PT REFUSED TURN BUT REQUESTED FEET BE FLOATED OFF BED
--- NOTE | 2020-04-16 22:53 | NUR ---
IV FLUSHED. PATENT AND DRAWS BACK WELL. LEVOPHED STILL INFUSING
--- NOTE | 2020-04-17 01:57 | NUR ---
IV FLUSHES AND DRAWS BACK WELL. LEVOPHED INFUSING AT 6MCG
[2020-04-17 03:52] LABS: BASOPHILS ABSOLUTE AUTO 0.01 K/mm3 (0.00-0.23); BASOPHILS PERCENT AUTO 0 % (0-2); EOSINOPHILS PERCENT AUTO 0 % (0-6); Hematocrit 39.1 % (37.0-53.0); Hemoglobin 12.9 g/dL (13.5-17.5); IMMATURE GRAN ABSOLUTE AUTO 0.03 K/mm3 (0.00-0.10); IMMATURE GRAN PERCENT AUTO 1 % (0-1); LYMPHOCYTES PERCENT AUTO 3 % (21-46); MONOCYTES ABSOLUTE AUTO 0.17 K/mm3 (0.16-1.47); MONOCYTES PERCENT AUTO 3 % (4-13); Mean Corpuscular HGB 31.4 pg (26.0-34.0); Mean Corpuscular Volume 95 fL (80-100); Mean Platelet Volume 9.3 fL (9.1-12.4); NEUTROPHILS ABSOLUTE AUTO 5.59 K/mm3 (1.96-9.15); NEUTROPHILS PERCENT AUTO 93 % (41-73); Platelet Count 176 K/mm3 (150-400); RDW Coefficient Variation 13.4 % (11.7-14.2); Red Blood Cell Count 4.11 M/mm3 (4.30-5.90)
[2020-04-17 04:13] LABS: Albumin, Blood 2.9 g/dL (3.4-5.0); Albumin/Globulin Ratio 0.9 (0.8-1.8); Bilirubin, Total 0.9 mg/dL (0.1-1.0); Calcium, Blood 8.3 mg/dL (8.5-10.1); Creatinine, Blood 2.36 mg/dL (0.60-1.20); Globulin, Blood 3.2 g/dL (2.2-4.0); Potassium, Blood 3.8 mmol/L (3.5-5.5); Total Protein, Blood 6.1 g/dL (6.4-8.2)
--- NOTE | 2020-04-17 06:19 | NUR ---
SHIFT SUMMARY: PT SLEPT MAJORITY OF SHIFT. SBP STABLE ON 6MCG OF LEVOPHED. PIV THAT LEVO IS INFUSING THROUGHT IS PATENT, FLUSHES AND DRAWS WELL. NO OTHER ACUTE CHANGES
--- NOTE | 2020-04-17 07:03 | NUR ---
LFA PIV PATENT AND DRAWS BLOOD WELL. LEVOPHED CONTINUES TO INFUSE
--- NOTE | 2020-04-17 07:30 | NUR ---
ASSUMED CARE PT ASLEEP SITTING UP IN BED. LEVO INFUSING VIA LEFT FOREARM IV- BLOOD RETURN NOTED AT 0725- DOSE IS 6 MCG/MIN, WITH A MAX DOSE OF 8 MCG/MIN PER DR. YOU. NS INFUSING AT 100 ML/HR. PT HAS A BACH CATH PATENT AND INFUSING LIGHT YELLOW URINE. PT IS IN AFIB/FLUTTER, STABLE BP (MAP >60). ON ROOM AIR, SATs 98%+. BED LOW AND LOCKED. CALL LIGHT WITHIN REACH.
--- NOTE | 2020-04-17 10:38 | NUR ---
LEFT FOREARM PERIPH IV - BLOOD RETURN NOTED, NO SIGNS OF INFILTRATION, SITE LOOKS WNL.
--- NOTE | 2020-04-17 10:39 | NUR ---
AT 0940 - NO SIGNS OF INFILTRATION IN LEFT FOREARM, PERIPH IV HAS +BLOOD RETURN AND FLUSHES WITH EASE.
--- NOTE | 2020-04-17 10:40 | NUR ---
UPDATE LEVOPHED DISCONTINUED FROM PERIPH IV ON LEFT FOREARM AT 1015. NO SIGNS OF INFILTRATION AROUND SITE. IV CONTINUES TO HAVE + BLOOD RETURN, AND FLUSHES WITH EASE.
--- NOTE | 2020-04-17 11:30 | NUR ---
LEFT FOREARM IV IS POSITIVE FOR BLOOD RETURN, AND FLUSHES WITH EASE. SITE IS WNL, NO SIGNS OF INFILTRATION.
--- NOTE | 2020-04-17 11:37 | NUR ---
UPDATE PT STILL REQUIRING LOW DOSE LEVOPHED TO MAINTAIN MAP > 60. PT DOESN'T APPEAR SYMPTOMATIC WHEN HE IS HYPOTENSIVE (EVEN WHEN LEVOPHED WAS OFF, AND HE HAD A VERY LOW BP). 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 PT IS ALERT AND ORIENTED X 3-4. BED LOW/LOCKED. CALL LIGHT WITHIN REACH. VERY PARTICULAR ON CARE. REFUSING MOST CARE, AND MAKING SMALL DEMANDS. PT IS SLIGHTLY DEFENSIVE, BUT OVERALL IN OKAY MOOD - AND IS UNDERSTANDING HIS SITUATION AND WHAT HAPPENED TO HIM.
--- NOTE | 2020-04-17 12:43 | NUR ---
UPDATE/BLOOD PRESSURE PT IS HAVING INTERMITTENT LOW BP READINGS, @ 1230 MAP: 50; @ 1215 MAP: 56; BUT AT 1200 MAP = 64, AND AT 1145: 71. PT CONTINUES TO BE AT BASELINE MENTATION, ORIENTED X 4. ADEQUATE URINE OUTPUT. AND NO CHANGES TO CAP REFIL, PULSES, AND WARMTH OF SKIN IN EXTREMITIES. NO ACUTE CHANGES NOTED. KENYATTA AWARE OF BLOOD PRESSURE. NO CHANGES FOR TIME BEING, WILL CONTINUE TO MONITOR. LEVOPHED WILL REMAIN AT 2 MCG/MIN, AND NS CONTINUES TO INFUSE AT 100 ML/HR PER DR. YOU.
--- NOTE | 2020-04-17 13:30 | NUR ---
LEFT FOREARM IV POSITIVE FOR BLOOD RETURN. FLUSHES EASILY. NO SIGNS OF INFILTRATION, SITE IS WNL.
--- NOTE | 2020-04-17 18:30 | NUR ---
SHIFT SUMMARY PT WAS NOT ABLE TO COME OFF LEVOPHED GTTP, CURRENTLY ON 5 MCG/MIN TO MAINTAIN MAP > 60. PT WAS NEVER SYMPTOMATIC WHEN HE WAS HYPOTENSIVE. HE REMAINS ALERT AND ORIENTED X 4, DENIES PAIN, HEADACHE HAS BEEN RELIEVED WITH TYLENOL. BACH CATHETER IS 10 FR, WITH 3cc OF SALINE IN BALLOON. HE IS HAVING ADEQUATE LIGHT YELLOW URINE OUTPUT. PT's LLE HAS LYMPHEDEMA AND IS QUITE LARGE, SWOLLEN 4+ PITTING EDEMA - DENIES PAIN. HE DENIES SOB, AND IS ON ROOM AIR WITH SPO2 98%+. PT HAS A BUNDLE BRANCH BLOCK (LEFT), AND IS IN AFIB. PT STATES HE IS ON A [facility] SOFT DIET AT HOME, CHANGE WAS MADE. PERIPHERAL IV IN THE LEFT FOREARM SITE HAS BEEN WNL, POSITIVE BLOOD RETURN ALL DAY, FLUSHING WITH EASE, AND NO COMPLAINTS OF SORENESS/PAIN. PT HAS NS INFUSING AT 100 ML/HR, DR YOU WANTED THAT CONTINUED. BED IS LOW AND LOCKED. CALL LIGHT WITHIN REACH.
--- NOTE | 2020-04-17 19:30 | NUR ---
ASSUMED PT CARE BEDSIDE REPORT FROM SAMUEL BURKS AT 1900, ASSUMED PT CARE. PT ALERT AND ORIENTED. ABLE TO MAKE NEEDS KNOWN. PT SITTING UP IN BED, WATCHING TV. PT ABLE TO MAKE SOME POSITION CHANGES INDEPENDENTLY. FULL ROM TO BUE. PT ON RA, SATS >92%, LUNG SOUNDS CLEAR TO UPPER, DIMINISHED THROUGHOUT. PT HAS VERY WEAK COUGH THAT SOUNDS WET. PT SKIN PALE, INTACT. SCALING TO LLE FROM LYMPHEDEMA. PULSES STRONG. PT HAS 22G TO LEFT HAND, SL, SITE WNL, DRESSING C/D/I. PT HAS 18G TO LEFT AC WITH LEVOPHED INF @ 5MCG/MIN AND NS INF @ 100 ML/HR, SITE WNL, GOOD BLOOD RETURN, FLUSHES WELL. DRESSING C/D/I. PT DENIES PAIN TO SITE. NO SWELLING NOTED. PT HAS 10FR BACH DRAINING CLEAR YELLOW URINE, SKIN RED AND EXCORIATED TO GROIN. PT ABD DISTENDED, PT STATES NORMAL. DENIES NAUSEA, WADE DIET. PT IN AFIB (CHRONIC) RATE 80-90, BP SOFT MAP >65. CALL LIGHT IN REACH. SEE FULL SHIFT ASSESSMENT.
[2020-04-18 03:38] LABS: BASOPHILS ABSOLUTE AUTO 0.01 K/mm3 (0.00-0.23); BASOPHILS PERCENT AUTO 0 % (0-2); EOSINOPHILS PERCENT AUTO 0 % (0-6); Hematocrit 36.9 % (37.0-53.0); Hemoglobin 12.1 g/dL (13.5-17.5); IMMATURE GRAN ABSOLUTE AUTO 0.04 K/mm3 (0.00-0.10); IMMATURE GRAN PERCENT AUTO 0 % (0-1); LYMPHOCYTES ABSOLUTE AUTO 0.28 K/mm3 (0.84-5.20); LYMPHOCYTES PERCENT AUTO 2 % (21-46); MONOCYTES ABSOLUTE AUTO 1.03 K/mm3 (0.16-1.47); MONOCYTES PERCENT AUTO 9 % (4-13); Mean Corpuscular HGB 30.9 pg (26.0-34.0); Mean Corpuscular HGB Conc 32.8 g/dL (31.5-36.5); Mean Corpuscular Volume 94 fL (80-100); Mean Platelet Volume 9.1 fL (9.1-12.4); NEUTROPHILS ABSOLUTE AUTO 10.38 K/mm3 (1.96-9.15); NEUTROPHILS PERCENT AUTO 88 % (41-73); Platelet Count 156 K/mm3 (150-400); RDW Coefficient Variation 13.5 % (11.7-14.2); RDW Standard Deviation 47.2 fL (35.1-46.3); Red Blood Cell Count 3.91 M/mm3 (4.30-5.90); White Blood Cell Count 11.74 K/mm3 (4.00-11.30)
[2020-04-18 03:58] LABS: Calcium, Blood 8.6 mg/dL (8.5-10.1); Creatinine, Blood 1.75 mg/dL (0.60-1.20); Potassium, Blood 4.3 mmol/L (3.5-5.5)
--- NOTE | 2020-04-18 06:19 | NUR ---
SHIFT SUMMARY PT HAD GOOD SHIFT. REMAINS ALERT AND ORIENTED. REMAINS ON ROOM AIR, SATS >92%. PT AFEBRILE. RATE CONTINUES IN AFIB 70-90S. BP STABLE. PT HAS 18G TO LEFT AC WITH NS INF @ 100ML/HR AND LEVOPHED INF @ 2MCG/MIN. SITE WNL. SL 22G TO LEFT HAND, SITE WNL. PT USES CALL LIGHT APPROPRIATELY. PT IS VERY PARTICULAR RE THINGS IN ROOM AND HOW HE WANTS THINGS DONE. SKIN INTACT ASIDE FROM SCALING TO LLE AND SOME REDNESS TO GROIN. 10FR BACH DRAINING YELLOW URINE. PT REFUSES BIG POSITION CHANGES STATING "IM FINE". PT ABLE TO MOVE EXTREMITIES. NO ACUTE CHANGES DURING SHIFT. WILL REPORT TO ONCOMING RN.
--- NOTE | 2020-04-18 07:56 | NUR ---
ASSUMED CARE RECEIVED REPORT FROM VITALIY SOUSA. PT IS SLEEPING IN BED WITH THE HOB UP AT LEAST 45 DEGREES OR MORE, WITH MULTIPLE PILLOWS BEHIND HIS BACK. HE IS ON ROOM AIR, AND IS IN NO APPARENT DISTRESS. HE IS IN AFIB, WITH A CONTROLLED RATE (80s) AND OCCASSIONAL PACER SPIKES SEEN ON THE DENTISTRY TEACHER. LEVOPHED IS INFUSING AT 2 MCG/MIN, AND NS INFUSING AT 100 ML/HR. MAPs THIS MORNING ARE > 60. PT HAS A PATENT BACH DRAINING CLOUDY, YELLOW URINE WITH SEDIMENT. BED IS LOW AND LOCKED. CALL LIGHT IS WITHIN REACH.
--- NOTE | 2020-04-18 08:30 | NUR ---
PERIPHERAL IV +BLOOD RETURN. FLUSHES WITH EASE. NO SIGNS OF INFILTRATION AROUND SITE.
--- NOTE | 2020-04-18 10:33 | NUR ---
PERIPHERAL IV 18G IN LEFT FOREARM - FLUSHES WITH EASE, SHOWING POSITIVE BLOOD RETURN AND THE SITE IS WNL, NO SIGNS OF INFILTRATION.
--- NOTE | 2020-04-18 12:00 | NUR ---
PERIPHERAL IV WITH LEVO INFUSING POSITIVE FOR BLOOD RETURN, FLUSHES WITH EASE. NO SIGNS OF INFILTRATION AT IV SITE. PT DENIES PAIN AT SITE.
--- NOTE | 2020-04-18 14:38 | NUR ---
PERIPHERAL IV WITH LEVO INFUSING AT 2 MCG/MIN POSITIVE BLOOD RETURN NOTED. FLUSHES WITH EASE. NO SIGNS OF INFILTRATION.
--- NOTE | 2020-04-18 16:00 | NUR ---
PERIPHERAL IV LEFT FOREARM POSITIVE BLOOD RETURN NOTED. FLUSHING WELL, NO RESISTANCE. SITE IS WNL, NO SIGNS OF INFILTRATION. PT REPORTS NOT TENDERNESS, IRRIATION AT SITE.
--- NOTE | 2020-04-18 17:47 | NUR ---
PERIPHERAL FOREARM IV ON LEFT ARM POSITIVE BLOOD RETURN. FLUSHES WITHOUT RESISTANCE. NO SIGNS OF INFILTRATION AROUND SITE, SITE LOOKS WNL. PT REPORTS NO PAIN AT SITE/ARM. LEVO IS INFUSING AT 2 MCG/MIN Y-SITED ON A NS TKO.
--- NOTE | 2020-04-18 18:06 | NUR ---
SHIFT SUMMARY NO ACUTE CHANGES T/O DAY. PT UNABLE TO TOLERATE BEING OFF LEVOPHED, HE WAS QUICKLY TURNED BACK ON TO 2 MCG/MIN AFTER IT BEING PUT ON STANDBY EARLIER TODAY. HE WAS NOT SYMPTOMATIC FOR HYPOTENSION, BUT HE HAS A FEW LOW PRESSURES IN A ROW, SBP 70s MAP 50s. T/O DAY LEVO ON AT 2 MCG/MIN HAS BEEN ADEQUATE TO ENSURE MAP > 60, AND SBP HAS PRIMARILY BEEN IN THE 90s, LOW 100s, AND SOMETIMES 80s. NS CONTINUES TO INFUSE AT 100 ML/HR. ADEQUATE URINE OUTPUT TODAY. PT IS STILL WARM TO TOUCH, CAP REFIL < 3s, AND PULSES PRESENT IN EACH EXTREMITY. PT DENIES CP, SOB, AND NAUSEA. HE IS IN A-FLUTTER, RATE CONTROLLED IN THE 70-100s. SPO2 HIGH 90s ON ROOM AIR. NO BM TODAY. PT HAS REDNESS/RASH IN HIS PROXIMAL MEDIAL THIGHS, AND HIS SCROTUM - AREA CLEANED DURING COMPLETE BED BATH, POWDER APPLIED. LLE HAS LYMPHEDEMA, SCALEY/FLAKEY, 4+ PITTING EDEMA, AND HAS BEEN WRAPPED WITH KERLEX AND HOA BANDAGE PER PT REQUEST. PT EATING MAJORITY OF MEALS, DRINKING FLUIDS ADEQUATELY. VERY PARTICULAR ABOUT CARE, AND HAS BEEN REFUSING MOST TURNS - ASIDE WHEN NEEDING HELP GETTING READY FOR MEALS. HE ALSO IS STRONG IN HIS UPPER EXTREMITIES BUT STILL REQUIRES A GOOD AMOUNT OF CARE/ASSISTANCE (MOVING THINGS FOR HIM, PULLING UP BLANKETS, OPENING FOOT ITEMS, ETC...). BED LOW AND LOCKED. CALL LIGHT WITHIN REACH.
--- NOTE | 2020-04-18 18:59 | NUR ---
echocardiogram complete
--- NOTE | 2020-04-18 19:30 | NUR ---
ASSUMED PT CARE REPORT AND BEDSIDE ROUNDING WITH SAMUEL RN @ 1905, ASSUMED PT CARE. PT ALERT AND ORIENTED, FINISHING DINNER. WHEN ASKED PT ABOUT HIS DAY, PT STATES IT WAS TERRIBLE. PT STATES THAT HE "CANT GET THE CAFETERIA TO SERVE ME WHAT I WANTS, THE NURSES ARE FED UP WITH ME, THE DOCS ARE ALL SWITCHING MY MEDS AROUND AND IM NOT MAKING MUCH URINE." EXPLAINED TO PT I&O AND THAT HIS UOP WAS ADEQUATED, ATTEMPTED TO EXPLAIN TO PT DOSE CHANGE WITH BETAPACE. PT INTERRUPTS AND IS ARGUMENTATIVE. EXPLAINE TO PT TO CALL STAFF WHEN HE WAS THROUGH WITH DINNER SO ROOM CAN BE TIDIED AND EVENING CARE CAN BE COMPELTE. PT VERBALIZED UNDERSTANDING. PT ON RA, SATS >92%, OCC DRY COUGH. LUNG SOUNDS DIMINISHED, PT RARELY TAKES DEEP BREATHS. PT HAS 22G TO LEFT HAND, SL, SITE WNL, DRESSING C/D/I. PT HAS 18G TO LEFT AC WITH NS INF @ 100ML/HR AND LEVOPHED INF @ 2MCG/MIN. BP AND MAP WNL WITH CURRENT DOSE. PT AFEBRILE. 10FR BACH DRAINING YELLOW URINE. PT ABD SOFT, DISTENDED. NO BM, PT REPORTS OCCASSIONAL FLATUS. SKIN UNCHANGED FROM PREVIOUS SHIFT. LLE WRAPPED. PT APPETITE WNL. CALL LIGHT IN REACH. SEE FULL SHIFT ASSESSMENT.
--- NOTE | 2020-04-19 06:26 | NUR ---
SHIFT SUMMARY PT HAD UEVENTFUL SHIFT. REMAINS ALERT AND ORIENTED, ON RA, SATS >92%. PT DENIES SOB, ABLE TO COMMUNICATED NEEDS. OPERATIONS EXECUTIVE SHOWS AFIB/FLUTTER, BP SOFT (MAPS WNL), LEVO INF @ 3MCG/MIN THROUGH 18G TO LEFT AC. SITE WNL, DRESSISNG C/D/I. PT HAS SL 22G TO LEFT HAND, SITE WNL, DRESSING C/D/I. 10FR BACH DRAINING URINE. PT ABD SOFT AND DISTENDED. NO BM. SKIN INTACT ASIDE FROM SCALING TO LLE. PT MOVES EXTREMITIES INDEPENDENTLY BUT RELIES HEAVILY ON STAFF FOR BASIC NEEDS AND ALL ADLS. PT FRUSTRATED WITH STAFF RE NOT GETTING ENOUGH FOOD, ANGRYU RE STAFF "SNEAKING IN HIS ROOM TO DO STUFF AND TAKE MY FOOD AND EXISTANCE AWAY". PT ARGUEMETATIVE AND IRRITABLE. CALL LIGHT IN REACH. WILL REPORT TO ONCOMING SHIFT.
--- NOTE | 2020-04-19 08:29 | NUR ---
ASSUMED CARE RECEIVED REPORT FROM VITALIY SOUSA. PT IS SITTING UP IN BED ASLEEP, VITALS ARE STABLE, AFLUTTER RHYTHM, MAP > 60. LEFT FOREARM IV SITE LOOKS WNL, NO SIGNS OF INFILTRATION, POSITIVE BLOOD RETURN, AND FLUSHES WITH EASE. HE HAS A PATENT BACH CATH, DRAINING CLOUDY, YELLOW. LEVO INFUSING AT 3 MCG/MIN, NS INFUSING AT 100 ML/HR.
--- NOTE | 2020-04-19 10:20 | NUR ---
PERIPHERAL IV LEFT FOREARM PERIPHERAL IV HAS LEVO INFUSING 3 MCG/MIN. IV HAS BLOOD RETURN, FLUSHES WITH EASE, AND NO SIGNS OF INFILTRATION AROUND IV SITE. PT REPORTS NO TENDERNESS AT SITE.
--- NOTE | 2020-04-19 13:27 | NUR ---
UPDATE ON IV PERIPHERAL IV IN LEFT FOREARM: SITE LOOKS WNL, NO SIGNS OF INFILTRATION, AND PT DENIES PAIN AT SITE. IV CATH HAD BLOOD RETURN, AND FLUSHED WITH EASE. LEVO REMAINS INFUSING THROUGH NS TKO AT 2 MCG/MIN.
--- NOTE | 2020-04-19 13:40 | NUR ---
LEFT FOREARM IV IV FLUSHES WITH EASE. BLOOD RETURN NOTED. SITE IS CDI, AND PT REPORTS NO PAIN. NO SIGNS OF INFILTRATION.
--- NOTE | 2020-04-19 17:42 | NUR ---
SHIFT SUMMARY NO ACUTE CHANGES T/O. LEVO GTTP OFF AT 1335; BP WNL SINCE THEN - MAP > 65. PT DENIES PAIN - INCLUDING CHEST PAIN, AND HE IS DENYING NAUSEA, SOB, AND ANY MAJOR DISCOMFORT. HE DOES HAVE MILD ANXIETY, HE SMOKES POT DAILY FOR ANXIETY, AND HE HASN'T HAD ANY SINCE ADMISSION OF COURSE. VITALS STABLE, AFLUTTER, WITH OCCASSIONAL PACER SPIKES THAT ARE FAILING TO CAPTURE - BUT VERY SELDOM. WITH SKIN CARE AND HIS LINEN CHANGE HE DID GET MILDLY SHORT OF BREATH, AND MORE ANXIOUS, BUT WITH REST HE RECOVERED QUICKLY. HE DOES LIKE TO SLEEP AND REST WITH MULTIPLE PILLOWS BEHIND HIM HE SITS UP. BACH IS PATENT AND DRAINING ADEQUATE URINE OUTPUT. NS REMAINS INFUSING AT 100 ML/HR. LLE THAT HAS LYMPHEDEMA IS WRAPPED UP WITH KERLEX AND HOA BANDAGE, AND IS CDI, PT DENIES ANY DISCOMFORT CURRENTLY IN LEG. BED IS LOW AND LOCKED. CALL LIGHT WITHIN REACH.
--- NOTE | 2020-04-19 20:04 | NUR ---
ASSUMED CARE: PT IS A&O. SPO2 >90% ON RA. IN A FLUTTER WITH BBB. SBP IN IN THE 80S, MAP >60. HR IN THE 80S. PT HAS BACH IN PLACE DRAINING TO GRAVITY. LEVOPHED OFF SINCE 1400 AND HAS BEEN REPLACED WITH PO MIDODRINE. PT ON REG DIET. WILL CONTINUE TO MONITOR
[2020-04-20 03:35] LABS: BASOPHILS ABSOLUTE AUTO 0.03 K/mm3 (0.00-0.23); BASOPHILS PERCENT AUTO 0 % (0-2); EOSINOPHILS ABSOLUTE AUTO 0.12 K/mm3 (0.00-0.68); EOSINOPHILS PERCENT AUTO 2 % (0-6); Hematocrit 37.9 % (37.0-53.0); Hemoglobin 12.2 g/dL (13.5-17.5); IMMATURE GRAN ABSOLUTE AUTO 0.02 K/mm3 (0.00-0.10); IMMATURE GRAN PERCENT AUTO 0 % (0-1); LYMPHOCYTES ABSOLUTE AUTO 0.54 K/mm3 (0.84-5.20); LYMPHOCYTES PERCENT AUTO 7 % (21-46); MONOCYTES ABSOLUTE AUTO 1.26 K/mm3 (0.16-1.47); MONOCYTES PERCENT AUTO 17 % (4-13); Mean Corpuscular HGB 31.7 pg (26.0-34.0); Mean Corpuscular HGB Conc 32.2 g/dL (31.5-36.5); Mean Corpuscular Volume 98 fL (80-100); Mean Platelet Volume 9.5 fL (9.1-12.4); NEUTROPHILS ABSOLUTE AUTO 5.41 K/mm3 (1.96-9.15); NEUTROPHILS PERCENT AUTO 73 % (41-73); Platelet Count 134 K/mm3 (150-400); RDW Coefficient Variation 13.8 % (11.7-14.2); RDW Standard Deviation 49.9 fL (35.1-46.3); Red Blood Cell Count 3.85 M/mm3 (4.30-5.90); White Blood Cell Count 7.38 K/mm3 (4.00-11.30)
[2020-04-20 03:50] LABS: Alanine Aminotransfer (ALT/SGP 16 U/L (12-78); Albumin, Blood 2.6 g/dL (3.4-5.0); Albumin/Globulin Ratio 0.8 (0.8-1.8); Alk Phos 64 U/L (50-136); Anion Gap 5 mmol/L (6-16); Aspartate Aminotrans (AST/SGOT 13 U/L (12-37); Bilirubin, Total 0.8 mg/dL (0.1-1.0); Blood Urea Nitrogen 41 mg/dL (8-24); Bun/Creatinine Ratio 33.9 (12.0-20.0); CO2, Blood 25 mmol/L (21-32); Calcium, Blood 8.7 mg/dL (8.5-10.1); Chloride, Blood 111 mmol/L (98-108); Creatinine, Blood 1.21 mg/dL (0.60-1.20); Globulin, Blood 3.1 g/dL (2.2-4.0); Glomerular Filtration Rate >60 (60-); Glucose, Blood 94 mg/dL (70-99); Magnesium, Blood 1.9 mg/dL (1.6-2.4); Phosphorus, Blood 2.9 mg/dL (2.5-4.9); Sodium, Blood 141 mmol/L (136-145); Total Protein, Blood 5.7 g/dL (6.4-8.2)
--- NOTE | 2020-04-20 05:32 | NUR ---
SHIFT SUMMARY: NO ACUTE CHANGES T/O SHIFT. VSS. LEPHOPED HAS REMAINED OFF
--- NOTE | 2020-04-20 10:50 | NUR ---
REPORT GIVEN TO MEDICAL FLOOR.
--- NOTE | 2020-04-20 16:25 | NUR ---
RECLINER THAT WAS GOT FOR HIM, SAYS HE WANTS TO BE LEFT ALONE.
--- NOTE | 2020-04-20 16:34 | NUR ---
SUMMARY ICU TRANSFER TODAY APPROX 1200. 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 HE HAS VOIDED THIS AFTERNOON. HE STATE INCREASED ANXIETY @ X'S THAT CAUSE HIM TO FEEL SOB. STATE ANXIETY R/T POOR MEDICAL CONDITION. HE IS A/O X4. HR IRREG, 80-100, HX AFIB, CURRENTLY ON XARELTO. LUNGS DECREASED T/O, BIOX 96% RA. BT+, ABD IS SOFT, ROUND, OBESE. L LEG EDEMATOUS, HX LLE CANCER, LYMPHEDEMA, WRAPPED ANKLE TO THIGH w HOA BANDAGE. HE IS ABLE TO STAND TRANSFER 1 ASSIST TO BSC. XLRG SOFT/FORMED BM THIS AFTERNOON. MINIMAL PARTICIPATION w PHYTHER. DX ARF HAS IMPROVED, GFR >60, DR ASHBY STOP NS INFUSION. CONTINUE TO TX UTI w IVPB ROCEPHIN DAILY. HYPOTENSION HAS IMPROVED, HE HAS BEEN STARTED ON MIDODRINE.
--- NOTE | 2020-04-21 04:21 | NUR ---
SHIFT SUMMARY- PT. A&O, IRRITABLE AT TIMES. HAD NO ACUTE EVENTS OVERNIGHT, PT. SLEEPING BENT OVER ON THE SIDE OF THE BED T/O THE NIGHT. REFUSED TO BE ASSISTED BACK INTO BED. NO COMPLAINTS OF PAIN OR DISCOMFORT THIS SHIFT, USES URINAL AT THE BEDSIDE. VSS. CALL LIGHT WITHIN REACH AND SIDE RAILS UPX2. WILL CONT TO MONITOR.
[2020-04-21 04:51] LABS: BASOPHILS ABSOLUTE AUTO 0.04 K/mm3 (0.00-0.23); BASOPHILS PERCENT AUTO 1 % (0-2); EOSINOPHILS ABSOLUTE AUTO 0.17 K/mm3 (0.00-0.68); EOSINOPHILS PERCENT AUTO 2 % (0-6); Hematocrit 39.9 % (37.0-53.0); Hemoglobin 12.9 g/dL (13.5-17.5); IMMATURE GRAN ABSOLUTE AUTO 0.01 K/mm3 (0.00-0.10); IMMATURE GRAN PERCENT AUTO 0 % (0-1); LYMPHOCYTES ABSOLUTE AUTO 0.44 K/mm3 (0.84-5.20); LYMPHOCYTES PERCENT AUTO 6 % (21-46); MONOCYTES ABSOLUTE AUTO 1.15 K/mm3 (0.16-1.47); MONOCYTES PERCENT AUTO 16 % (4-13); Mean Corpuscular HGB 31.2 pg (26.0-34.0); Mean Corpuscular HGB Conc 32.3 g/dL (31.5-36.5); Mean Corpuscular Volume 97 fL (80-100); Mean Platelet Volume 9.4 fL (9.1-12.4); NEUTROPHILS ABSOLUTE AUTO 5.62 K/mm3 (1.96-9.15); NEUTROPHILS PERCENT AUTO 76 % (41-73); Platelet Count 135 K/mm3 (150-400); RDW Coefficient Variation 13.3 % (11.7-14.2); RDW Standard Deviation 47.9 fL (35.1-46.3); Red Blood Cell Count 4.13 M/mm3 (4.30-5.90); White Blood Cell Count 7.43 K/mm3 (4.00-11.30)
[2020-04-21 05:10] LABS: Albumin, Blood 2.7 g/dL (3.4-5.0); Anion Gap 5 mmol/L (6-16); Blood Urea Nitrogen 31 mg/dL (8-24); Bun/Creatinine Ratio 29.2 (12.0-20.0); CO2, Blood 25 mmol/L (21-32); Calcium, Blood 9.1 mg/dL (8.5-10.1); Chloride, Blood 111 mmol/L (98-108); Creatinine, Blood 1.06 mg/dL (0.60-1.20); Glomerular Filtration Rate >60 (60-); Glucose, Blood 103 mg/dL (70-99); Phosphorus, Blood 2.2 mg/dL (2.5-4.9); Sodium, Blood 141 mmol/L (136-145)
--- NOTE | 2020-04-21 14:33 | NUR ---
DR ASHBY ROUND ON PT THIS AM, STATE READY FOR TRANSFER TO SNF TODAY. PLACE ORDERS. PT CONTINUES TO STATE NEED FOR ANXIETY MED OTHERWISE REFUSES TO EAT OR COOPERATE w COVID19 TEST. NOTIFIED DR ASHBY, SHE CLARIFY THAT CELEXA IS TO TX ANXIETY/DEPRESSION, STATE TO START NOW. ORDER CLARIFIED w PHARMACY, DOSE GIVEN. COVID19 TEST OBTAINED. PT IS A/O X4, HE APPEARS WEAK/FATIGUED, AFFECT SOMEWHAT DEFENSIVE. HE DECLINES BEDBATH/SHOWER.
[2020-04-21 15:26] LABS: Influenza A, PCR Negative (NEGATIVE); Influenza B, PCR Negative (NEGATIVE); Resp Syncytial Virus, PCR Negative (NEGATIVE); SARS-Cov-2 (COVID-19) PCR, MMC Negative (NEGATIVE)
--- NOTE | 2020-04-21 16:19 | NUR ---
transfer to [facility] arranged. woods overseer assist pt to dress in scrubs, gather belongings. transportation via w/c van arranged for 1600. on arrival pt assisted to w/, he state appreciation. report called to rachel keane.
== END 2020-04-21 15:58 | DRG 917 ==
LOC: ER 13:21 → ICUW 18:02 → PCU 18:02 → ICUW 18:50 → MEDS 04-20 11:18
PROVIDERS: Emergency Medicine; Family Medicine; Internal Medicine Critical Care Medicine; ADMIT Internal Medicine
DX: T50.2X4A Poisoning by carbonic-anhydrase inhibitors, benzothiadiazides and other diuretics, undetermined, initial encounter (principal); R57.1 Hypovolemic shock; N17.9 Acute kidney failure, unspecified; E87.1 Hypo-osmolality and hyponatremia; I48.20 Chronic atrial fibrillation, unspecified; N39.0 Urinary tract infection, site not specified; I48.92 Unspecified atrial flutter; Z20.828 Contact with and (suspected) exposure to other viral communicable diseases; D69.6 Thrombocytopenia, unspecified; E78.5 Hyperlipidemia, unspecified; E86.0 Dehydration; I10 Essential (primary) hypertension; Z85.3 Personal history of malignant neoplasm of breast; Z86.73 Personal history of transient ischemic attack (TIA), and cerebral infarction without residual deficits; Z85.118 Personal history of other malignant neoplasm of bronchus and lung; I95.89 Other hypotension; I35.0 Nonrheumatic aortic (valve) stenosis; I05.0 Rheumatic mitral stenosis; Z95.0 Presence of cardiac pacemaker; I12.9 Hypertensive chronic kidney disease with stage 1 through stage 4 chronic kidney disease, or unspecified chronic kidney disease; N18.32 Chronic kidney disease, stage 3b; Z85.89 Personal history of malignant neoplasm of other organs and systems; B96.20 Unspecified Escherichia coli [E. coli] as the cause of diseases classified elsewhere; F41.8 Other specified anxiety disorders; Z91.14 Patient's other noncompliance with medication regimen; Z66 Do not resuscitate
CPT/HCPCS: 0241U; 36415; 36416; 51702; 71045; 74176; 80048; 80053; 80069; 80400; 81001; 82330; 82533; 82570; 83735; 84100; 84300; 84484; 85025; 87077; 87086; 87186; 93005; 93010; 93306; 96360-59; 97161; 97165; 97530; 99285-25; A9270; J0696; J0834; J1100; J7030; J7060; J7120